=== PATIENT | male | born 1985 | race Caucasian/White ===

== ENCOUNTER 2020-06-05 07:44 | Emergency (ER) | payer OTHER ==
[~2020-06-05] VITALS: Ht 182.9 cm; Wt 108.9 kg
[~2020-06-05 07:44] MED LIST: ANTIVERT25 M1 PO
== END 2020-06-05 12:45 | disposition home or self-care (01) ==
LOC: ER 07:44
DX: U07.1 COVID-19 (principal); B34.9 Viral infection, unspecified

== ENCOUNTER 2021-11-30 10:34 | Emergency (ER) | payer OTHER ==
[~2021-11-30] VITALS: Ht 182.9 cm; Wt 108.9 kg
== END 2021-11-30 13:35 | disposition home or self-care (01) ==
LOC: ER 10:34
DX: M25.562 Pain in left knee (principal); Z88.6 Allergy status to analgesic agent; Z88.8 Allergy status to other drugs, medicaments and biological substances

== ENCOUNTER → 2022-05-24 | Emergency (ER) | payer OTHER ==
[~2022-05-24] VITALS: Ht 182.9 cm; Wt 108.9 kg
== END | disposition left against medical advice (07) ==
LOC: ER 23:06
DX: Z53.21 Procedure and treatment not carried out due to patient leaving prior to being seen by health care provider (principal)

== ENCOUNTER 2025-01-22 23:03 | Emergency (ER) | payer OTHER ==
[~2025-01-22] VITALS: Ht 182.9 cm; Wt 113.4 kg
[~2025-01-22 23:03] MED LIST changes: +DOLOGESIC-DF 51 EACH PO; +PHENAGIL TABLE1 EACH PO; +ZYNCOF 20-400120 ML PO
[2025-01-22 23:51] VITALS: BP 146/78; O2SAT 98
[2025-01-23] MEDS ORDERED: CEFTRIAXONE SODIUM 1,000 MG VIAL IM STA (02:51)
[2025-01-23] MEDS ORDERED: TRAMADOL HCL 50 MG TABLET PO STA (02:51)
[2025-01-23] MEDS ORDERED: TRAMADOL HCL50 MG PO (02:54)
[2025-01-23] MEDS ORDERED: CLEOCIN HCL300 MG PO (02:54)
[2025-01-23] MEDS ORDERED: LIDOCAINE HCL 1% 10ML VIAL ONE (03:07)
[2025-01-23] MEDS ORDERED: CEFTRIAXONE SODIUM 1,000 MG VIAL ONE (03:07)
== END 2025-01-23 03:23 ==
LOC: ER 23:03
DX: K08.89 Other specified disorders of teeth and supporting structures (principal); Z88.6 Allergy status to analgesic agent

== ENCOUNTER 2025-02-01 13:12 | Emergency (ER) | payer OTHER ==
[~2025-02-01] VITALS: Ht 182.9 cm; Wt 108.0 kg
[~2025-02-01 13:12] MED LIST changes: +CLEOCIN HCL300 MG PO; +TRAMADOL HCL50 MG PO
[2025-02-01] MEDS ORDERED: LISINOPRIL 5 MG TABLET PO STA (15:25)
[2025-02-01 15:37] LABS: BASO % 0.6 % (0.1-1.2); EOS # 0.03 (0.04-0.54); EOS % 0.4 % (0.7-7.0); LYMPH # 3.55 (1.18-3.74); LYMPH % 52.7 % (19.3-53.1); MEAN PLATELET VOLUME 10.00 fl (9.4-12.4); MONO # 0.42 (0.24-0.82); MONO % 6.2 % (4.7-12.5); NEUT # 2.69 (1.56-6.13); NEUT % 40.0 % (34.0-71.1); RED CELL DISTRIBUTION WIDTH 12.1 % (11.6-14.4)
[2025-02-01 16:08] LABS: ALT/SGPT 33.0 U/L (12-78); AST/SGOT 23.0 U/L (15-37); BILIRUBIN TOTAL 0.45 mg/dL (0.3-1.2); BUN CREA RATIO 12.0 (7.0-25.0); CREATININE SERUM 1.2 mg/dL (0.70-1.30); GFR 67.4; GLOBULINA 4.3 G/DL (2.4-3.5); GLUCOSE FASTING 123.0 mg/dL (65-100); OSMOLALITY SERUM 281.0 MOSM/KG (275-295)
[2025-02-01 16:20] LABS: URINE APPEARANCE Clear; URINE BILIRRUBIN Negative (NEGATIVE); URINE BLOOD Negative; URINE COLOR Yellow; URINE GLUCOSE Negative (NEGATIVE); URINE KETONE Trace (NEGATIVE); URINE LEUKOCYTE Negative; URINE NITRATE Negative; URINE PROTEIN Negative (NEGATIVE); URINE UROBILINOGEN 0.2 E.U./dl
[2025-02-01 16:23] LABS: URINE BACTERIA 7.1 uL (0.0-1933); URINE EPITHELIAL CELLS 4.4 uL (0.0-38.8); URINE RBC 4.6 uL (0.0-20.8); URINE WBC 4.6 uL (0.0-23.2)
[2025-02-01 16:37] LABS: URINE CAST 0.14 uL (0.0-1.40)
== END 2025-02-01 16:49 | disposition home or self-care (01) ==
LOC: ER 13:12
PROVIDERS: General Practice
DX: I10 Essential (primary) hypertension (principal); Z88.6 Allergy status to analgesic agent